=== PATIENT | male | born 1960 | race Caucasian/White ===

== ENCOUNTER → 2019-01-02 | Outpatient (CLI) | payer BC | LOC: LAB.O 08:01 | PROVIDERS: ATTEND Family Medicine | DX: Z00.00 Encounter for general adult medical examination without abnormal findings (principal); R79.89 Other specified abnormal findings of blood chemistry; E78.5 Hyperlipidemia, unspecified; R74.8 Abnormal levels of other serum enzymes ==

== ENCOUNTER → 2019-02-13 | Outpatient (CLI) | payer BC | LOC: RESP 10:17 | PROVIDERS: ATTEND Family Medicine | DX: Z00.00 Encounter for general adult medical examination without abnormal findings (principal); R94.5 Abnormal results of liver function studies; R31.9 Hematuria, unspecified ==

== ENCOUNTER → 2019-02-26 | Outpatient (CLI) | payer BC ==
--- NOTE | 2019-02-26 19:09 | US ---
EXAM DESCRIPTION: Liver: ULTRASOUND. CLINICAL HISTORY: ABNORMAL LEVELS OF OTHER SERUM ENZYMES COMPARISON: CT abdomen and pelvis August 2012. TECHNIQUE: Transabdominal scannin-dimensional and Doppler modes. FINDINGS: Gallbladder: normal size, shape, echogenicity; no intraluminal stones or sludge. No fluid around the gallbladder. No wall thickening. 2.9 mm. Non-tender with transducer pressure. Common bile duct: caliber 4.5 mm within normal limits. Liver: Increased echogenicity; contour liver capsule smooth where seen. No fluid around the liver. Intrahepatic biliary ducts normal caliber. Doppler hepatopedal flow portal vein. 1.1 cm Long axis right lobe 18.7 cm Pancreas: normal size and echogenicity. Duct not seen. Right kidney: long axis measures 13.5 cm. Normal cortical echogenicity. Normal cortical thickness. No hydronephrosis. IMPRESSION: 1. Steatosis of the liver with hepatomegaly. Normal ducts in vascularity. Smooth capsule with no ascites. 2. Gallbladder, common bile duct, pancreas, and right kidney are unremarkable. Electronically signed by: Wander Valdivia MD 02/26/2019 7:08 PM CDT
== END ==
LOC: LAB.O 02-25 14:48
PROVIDERS: ATTEND Family Medicine
DX: K76.0 Fatty (change of) liver, not elsewhere classified (principal); R74.8 Abnormal levels of other serum enzymes

== ENCOUNTER → 2020-01-09 | Outpatient (CLI) | payer BC | LOC: YCFC.O 08:10 | PROVIDERS: ATTEND Family Medicine | DX: E78.5 Hyperlipidemia, unspecified (principal); R79.89 Other specified abnormal findings of blood chemistry; R94.5 Abnormal results of liver function studies; R53.83 Other fatigue; Z12.5 Encounter for screening for malignant neoplasm of prostate ==

== ENCOUNTER → 2020-03-02 | Outpatient (CLI) | payer BC ==
--- NOTE | 2020-03-02 10:56 | CT ---
EXAM DESCRIPTION: Abdomen/Pelvis w/wo Contrast CLINICAL HISTORY: HEMATURIA COMPARISON: September 09, 2012 10 TECHNIQUE: CT of the abdomen and Pelvis was performed without and with IV contrast. This exam was performed according to our departmental dose-optimization program, which includes automated exposure control, adjustment of the mA and/or kV according to patient size and/or use of iterative reconstruction technique. FINDINGS: Pre-IV contrast images show punctate nonobstructing calculus mid right kidney. No additional left or right-sided urinary tract calculus or hydroureteronephrosis. No bladder wall thickening or bladder calcification. Postcontrast images show a 2.7 cm cyst in the mid/superior pole of the left kidney. Smaller round low-density lesions elsewhere in both kidneys, incompletely characterized but also likely representing cysts. No perinephric fluid or suspicious renal mass. The prostate is enlarged, measuring 5.8 cm transverse diameter with mass effect on the bladder floor. Delayed postcontrast images confirm bilateral renal contrast excretion without ureteral dilation. Excreted contrast in the bladder without bladder wall irregularity. No lung base abnormality. No adenopathy or ascites. No abdominal aortic aneurysm. No calcified gallstone. No hiatal hernia. The liver, spleen, pancreas and adrenals are unremarkable no dilated small bowel loops or mesenteric inflammation. Normal appendix. Colonic diverticulosis without diverticulitis. Degenerative changes in the lumbar spine multiple levels including degenerative disc and facet joint disease with mild levoscoliosis. IMPRESSION: Punctate nonobstructing mid right renal calculus and a few small bilateral renal cysts, no ureteral calculus or suspicious renal mass. Enlarged prostate resulting in mass effect on the bladder floor, correlate with serum PSA evaluation. No bladder mass or bladder wall thickening. Colonic diverticulosis without diverticulitis and other nonacute findings as detailed above. Electronically signed by: Yuval Whitley MD 03/02/2020 10:54 AM CDT
== END ==
LOC: CT 07:49
PROVIDERS: ATTEND Urology
DX: Z01.812 Encounter for preprocedural laboratory examination (principal); N20.0 Calculus of kidney; N52.9 Male erectile dysfunction, unspecified; N40.1 Benign prostatic hyperplasia with lower urinary tract symptoms; K57.30 Diverticulosis of large intestine without perforation or abscess without bleeding; N28.1 Cyst of kidney, acquired

== ENCOUNTER → 2020-04-28 | Outpatient (CLI) | payer BC | LOC: YCFC.O 13:35 | PROVIDERS: ATTEND Family Medicine | DX: Z11.59 Encounter for screening for other viral diseases (principal) ==

== ENCOUNTER → 2020-06-16 | Outpatient (CLI) | payer BC ==
--- NOTE | 2020-06-16 14:37 | RAD ---
EXAM DESCRIPTION: Chest,2 Views CLINICAL HISTORY: 59 years Male, PRE-OP, SHOULDER SURGERY COMPARISON: None. TECHNIQUE: 2 view radiograph of the chest. IMPRESSION: Normal size cardiac silhouette. Mild interstitial opacification about the right greater than left perihilar and right lung base. This may represent vascular congestion and asymmetric pulmonary edema. Infection such as bronchitis not excluded in appropriate clinical setting. No pleural effusion or pneumothorax. Thoracic spondylosis. Electronically signed by: Rikki Murillo MD 06/16/2020 2:36 PM [facility]
== END ==
LOC: YCFC.O 11:32
PROVIDERS: ATTEND Family Medicine
DX: Z01.818 Encounter for other preprocedural examination (principal); R94.31 Abnormal electrocardiogram [ECG] [EKG]; G62.9 Polyneuropathy, unspecified; K76.0 Fatty (change of) liver, not elsewhere classified; R91.8 Other nonspecific abnormal finding of lung field; M47.894 Other spondylosis, thoracic region